=== PATIENT | female | born 1965 | race Caucasian/White ===

== ENCOUNTER 2018-02-10 05:02 | Day surgery (SDC) | payer BC ==
[2018-02-09 13:23] VITALS: BMI 27.6
--- NOTE | 2018-02-10 18:41 | HP ---
History & Physical Update - Physical Physical: No Change - Assessment Assessment: No Change - Plan Plan: No Change (postmenopausal vaginal bleeding, hysteroscopy D&C)
[2018-02-10] MEDS ORDERED: MIDAZOLAM HCL 2 MG/2 ML SINGLE DOSE VIAL ONE (18:44)
[2018-02-10] MEDS ORDERED: PROPOFOL 20 ML ONE (18:44)
[2018-02-10] MEDS ORDERED: IBUPROFEN 600 MG TABLET (FP) PO PRN (19:03)
[2018-02-10] MEDS ORDERED: IBUPROFEN 800 MG/8 ML IJ IVPB PRN (19:03)
[2018-02-10] MEDS ORDERED: oxyCODONE HCL 5 MG TABLET PO PRN (19:03)
[2018-02-10] MEDS ORDERED: ONDANSETRON 4 MG/2 ML VIAL IVPUSH PRN (19:03)
[2018-02-10] MEDS ORDERED: DEXAMETHASONE SOD PHOSPHATE 4 MG/1 ML VIAL ONE (19:11)
[2018-02-10] MEDS ORDERED: ELECTROLYTE-148 SOLN 1,000 ML IV SCH (19:15)
[2018-02-10] MEDS ORDERED: LACTATED RINGERS SOLUTION 1,000 ML IV SCH (19:45)
[2018-02-10 22:33] VITALS: BP 121/70; PULSE 84; TEMP 98.3
--- NOTE | 2018-02-11 15:19 | OP ---
DATE OF OPERATION: 02/10/2018 PREOPERATIVE DIAGNOSIS: Postmenopausal bleeding. POSTOPERATIVE DIAGNOSIS: Postmenopausal bleeding. PROCEDURE: Hysteroscopy, dilation and curettage, and polypectomy. SURGEON: Rolando Ghosh MD ANESTHESIA: General. ANESTHESIOLOGIST: Herman Clarke MD ESTIMATED BLOOD LOSS: 100 mL. DESCRIPTION OF PROCEDURE: The patient was taken to the operating room. Under adequate general anesthesia in dorsal lithotomy position, examination under anesthesia revealed external genitalia to be normal. Vagina was normal. The cervix was clean. No gross lesion. Uterus was slightly prominent. Adnexa no masses were palpable. Then with a weighted speculum in the vagina, anterior lip of the cervix was grasped with a single-tooth tenaculum. Uterine cavity was sounded to 9 cm. Then the cervix was slightly dilated with Hegar dilator to 5 mm and then hysteroscope was introduced. Visualization of endocervical canal appeared to be normal. There was a small polyp in the posterior lower part of the uterus. Both cornual regions were identified. No other abnormality of endometrium was noted. No submucous myoma. Hysteroscope was withdrawn, and the polyp was removed. Dilation and curettage were done. The patient tolerated the procedure well and left the OR in good condition. ROLANDO GHOSH M.D. [id number]
--- NOTE | 2018-02-14 18:35 | PATH ---
Surgical Pathology Report Patient Name: FRANNY RAND [facility] [place]. Rec. #: [id number] /Age/Gender: 1965 (Age: 52) / F Account: [id number] Location: [facility] SURGICAL Taken: 02/10/2018 Received: 02/11/2018 Reported: 02/14/2018 Physicians: Rolando Ghosh M.D. Specimen(s) Received ENDOMETRIAL CURETTINGS AND POLYP Clinical History Postmenopausal bleeding Final Diagnosis ENDOMETRIAL CURETTING AND POLYP: FRAGMENTS OF ENDOMETRIAL POLYP. SEPARATE FRAGMENTS OF PROLIFERATIVE ENDOMETRIUM. Electronically Signed Rowena Gregg M.D. Gross Description Received in formalin labeled "endometrial curetting and polyp," is a 2.5 x 1.7 x 0.3 cm aggregate of bradley brown soft tissue fragments. The formalin is filtered and the specimen is entirely submitted in one cassette. 02/11/201802/11/2018
== END 2018-02-10 22:10 | disposition home or self-care (01) ==
LOC: JASU-SURG 05:02 → J3W 21:05 → JASU-SURG 22:10
PROVIDERS: ATTEND Obstetrics & Gynecology
PROC: 0UB97ZX Excision of Uterus, Via Natural or Artificial Opening, Diagnostic (ICD-10-PCS; principal; 2018-02-10 16:30)
PROC: 0UDB8ZX Extraction of Endometrium, Via Natural or Artificial Opening Endoscopic, Diagnostic (ICD-10-PCS; 2018-02-10 16:30)
DX: N95.0 Postmenopausal bleeding (principal); N84.0 Polyp of corpus uteri
CPT/HCPCS: 84703; 88305-TC; 94760